=== PATIENT | male | born 1945 | race Caucasian/White ===

== ENCOUNTER 2017-03-20 10:06 | Emergency (ER) | payer MEDICARE, OTHER ==
[~2017-03-20] VITALS: Ht 177.8 cm; Wt 100.0 kg
[~2017-03-20 10:06] MED LIST: ASAEC PO; DIGO125T PO; GLU500 PO; LIP20 PO; METO25T PO; PRED5DRO6 BOTH_EYES; SITA100T PO; THI100 PO; ZES5 PO; [UNRECOGNIZED DRUG - CODE] PO; [UNRECOGNIZED DRUG - OTHER] OD
[2017-03-20 10:20] VITALS: BP 151/95; PULSE 122; RESP 18; O2SAT 95
--- NOTE | 2017-03-20 10:41 | ED.REPORT ---
HPI-Chest Pain 40 and Over Date of Service Mar 20, 2017 ED Provider: Camden Oglesby MD The patient is a 71 year old male with history of diabetes mellitus, hypertension, hyperlipidemia, asbestosis, atrial fibrillation, COPD, ACS, hx of GI bleed, and non-compliance with medications, who was brought to the emergency department by EMS. The patient went in to the [facility] this morning for his annual checkup when he reported intermittent chest pain over the last few months. At the facility he had an EKG that showed an "acute SD." When medics arrived their EKG showed sinus tachycardia. The patient reports he has been having intermittent episodes of chest pain over the last few months. The pain is located diffusely to his chest. He describes the pain as "tight." The pain usually lasts for about 10 minutes at a time and occurs about every other day. He does notice some shortness of breath during the episodes. He feels like he can't get a deep breath. The patient drinks 8-12 beers per day. His last drink was 2 days ago. He stopped drinking because he knew he had a doctors appointment coming up. The patient is not currently taking any of his prescribed medications. He states he ran out and just never filled them. Nursing Notes Stated Complaint: CHEST PAIN Chief Complaint: Dysrhythmia/Cardiac Nursing Notes Reviewed: Yes Allergies: Coded Allergies: No Known Allergies (Verified , 03/22/08) Scheduled Aspirin (Aspirin) 81 Mg Tablet 81 MG PO DAILY Aspirin-Expunged Drug, Do Not Renew! (Ecotrin-Expunged Drug, Do Not Renew!) 325 Mg Tabec 325 MG PO DAILY Atorvastatin-Expunged Drug, Do Not Renew! (Atorvastatin-Expunged Drug, Do Not Renew!) 20 Mg Tablet 20 MG PO HS Digoxin-Expunged Drug, Do Not Renew! (Digoxin-Expunged Drug, Do Not Renew!) 125 Mcg Tablet 0.125 MG PO NOON Glimepiride-Expunged Drug, Do Not Renew! (Glimepiride-Expunged Drug, Do Not Renew!) 2 Mg Tablet 2 MG PO DAILYAC Lisinopril-Expunged Drug, Do Not Renew! (Lisinopril-Expunged Drug, Do Not Renew! ) 5 Mg Tablet 5 MG PO DAILY Metformin-Expunged Drug, Do Not Renew! (Metformin-Expunged Drug, Do Not Renew!) 500 Mg Tablet 500 MG PO BIDWM Metoprolol Tart-Expunged Drug, Do Not Renew! (Metoprolol Tart-Expunged Drug, Do Not Renew!) 25 Mg Tablet 25 MG PO Q12 Metoprolol Tartrate (Metoprolol Tartrate) 25 Mg Tablet 12.5 MG PO BID Sitagliptin Phosphate (Januvia) 100 Mg Tablet 100 MG PO DAILY Thiamine-Expunged Drug, Do Not Renew! (Vitamin B1-Expunged Drug, Do Not Renew!) 100 Mg Tab 100 MG PO DAILY Miscellaneous Medications Ketorolac Tromethamine (Acular) 75 Drop/5 Ml Oph.soln 0.5 DROP OD Prednisolone Acetate (Prednisolone Acetate) 5 Ml Drops.susp 1 DRP BOTH_EYES General Time Seen by MD: 10:32 Chief Complaint Chest pain Hx Obtained From: Patient, Spouse, EMS Arrived By: Ambulance Sudden in Onset?: No Onset Occurred: More than a week ago... Symptom Duration: Intermittent Location: : Chest left: Chest right Quality: Painful Severity: Current: Mild Severity: Maximum: Severe Recent Healthcare: No recent hospitalization, Recent doctor visit Similar Sx Previous: Yes Past Medical History Past Medical History Cataracts ACS Hx of non-compliance with medication Atrial fibrillation Depression COPD Alcohol abuse Hx of GI bleed Asbestosis Reports: Cancer, Diabetes mellitus, Hyperlipidemia, Hypertension Past Surgical History eye surgery Reports: Appendectomy Smoking History Former Smoker Social History Alcohol Use: 1-3 per day Drug Use: Denies drug use Ambulatory Status Independent Review of Systems Respiratory: Reports: Shortness of breath Cardiovascular: Reports: Chest pain Complete sys rev & neg: except as marked. Physical Exam Initial Vital Signs Vital Signs (First) Date Time Temp Pulse Resp B/P Pulse Ox O2 Delivery O2 Flow Rate FiO2 03/20/17 10:20 36.8 122 18 151/95 95 Room Air Initial VS: Reviewed Head / Eyes: Atraumatic ENT: Mucous membranes moist, Conjunctiva normal, No scleral icterus Neck: Supple, Non-tender, Full range of motion Lymphatic: No lymphadenopathy Extremities: Vascular intact, Neuro intact, No swelling, No tenderness Skin: Warm, Dry, No cyanosis Psychiatric: Mood/affect normal, Behavior normal, Normal thought content General/Constitutional: Awake, Alert, No acute distress, Well appearing Respiratory / Chest: Atraumatic, Breath sounds NL, Breath sounds = bilat, No respiratory distress, No rales, No rhonchi, No wheezing, No stridor, No chest tenderness Cardiovascular: Regular rhythm, Heart sounds NL, No gallop, No murmurs, No rubs , Cap refill not delayed Heart Rate / Rhythm: Positive: Tachycardia Abdomen: Atraumatic, Soft, Non-tender, McBurney's non-tender, No guarding, No rebound, BS normoactive, No distention, No hernia, No palpable mass Neurologic: Oriented X3, Speech NL, No motor deficits, No sensory deficits, CN II - XII intact No tremors. Interpretation & Diagnostics Lab Results Interpretation Result Diagram: 03/20/17 1030 03/20/17 1030 Test 03/20/17 10:30 White Blood Count 7.2th/mm3 (3.8-10.1) Red Blood Count 5.55mil/mm3 (4.40-5.80) Hemoglobin 17.1g/dL (13.8-17.2) Hematocrit 49.3% (41.0-50.0) Mean Corpuscular Volume 88.8fL (81-100) Mean Corpuscular Hemoglobin 30.8pg (27.0-35.0) Mean Corpuscular Hemoglobin Concent 34.7% (32.0-37.0) Red Cell Distribution Width 12.8% (12.3-15.4) Platelet Count 206bil/L (150-400) Neutrophils (%) (Auto) 52.6% (40-74) Lymphocytes (%) (Auto) 33.2% (14-46) Monocytes (%) (Auto) 11.7% (4-12) Eosinophils (%) (Auto) 1.7% (0-5) Basophils (%) (Auto) 0.7% (0-3) Prothrombin Time 11.1sec (8.1-12.5) Prothromb Time International Ratio 1.04ratio D-Dimer 0.63mg/L FEU (<0.50) Sodium Level 137mEq/L (134-144) Potassium Level 3.9mEq/L (3.5-5.2) Chloride Level 93mEq/L (97-108) Carbon Dioxide Level 24mmol/L (18-29) Blood Urea Nitrogen 16mg/dL (8-27) Creatinine 0.82mg/dL (0.76-1.27) Estimat Glomerular Filtration Rate 98mL/min (>59) Glucose Level 291mg/dL (60-99) Calcium Level 9.9mg/dL (8.5-10.1) Magnesium Level 1.8mg/dL (1.6-2.6) Total Bilirubin 0.8mg/dL (0.0-1.2) Aspartate Amino Transf (AST/SGOT) 36U/L (0-50) Alanine Aminotransferase (ALT/SGPT) 43U/L (0-44) Alkaline Phosphatase 106U/L (25-160) Troponin T 0.010ug/L (0.0-0.011) Pro-B-Type Natriuretic Peptide 360.2pg/mL (0-376) Total Protein 8.4g/dL (6.4-8.4) Albumin 4.3g/dL (3.4-5.0) ECG Interpretation ECG Interpretation: Sinus tachycardia with a rate of [address] T changes Time: 10:30 Interpreted by: ED physician X-Ray Chest Interpretation Chest Xray Interpretation: IMPRESSION: Stable chest. No acute cardiopulmonary process is evident. Dictated by: Jayson Curran M.D. on 03/20/2017 at 10:11 Interpretation / Wet Read by: Interpret - Radiologist CT Chest Interpretation IMPRESSION: 1. No acute pulmonary embolus. 2. Extensive pleural thickening and calcification suggesting prior asbestosis Asbestos exposure. 3. Cardiomegaly and coronary artery calcifications. Dictated by: Alexa Duenas M.D. on 03/20/2017 at 12:48 Study type: CT pulm angiogram Interpretation / Wet Read by: Interpret - Radiologist Re-Eval/Medical Decision Med Decision/Clinical Course 71-year-old male history of COPD, atrial fibrillation not on any medications by patient choice presenting sent in by primary doctor complaining of chest pain for several months. He is vague about the chest pain. He was seen by his primary doctor today and they were worried that his EKG showed acute SD therefore sent him in for evaluation. The paramedics and I reviewed the EKG and there was no evidence of acute SD. He did arrive in atrial flutter with RVR. He was given 500 mL's of IV fluids and 10 mg of IV diltiazem and his heart rate stabilized. He went up to HR 150s for several seconds which resolved. He had no chest pain while I was here. His troponins were negative. His d-dimer was mildly elevated but CT Angio chest showed no PE. I discussed with patient and he requested to go home. He did not want to be admitted to the hospital. He did not want to be on anticoagulants. He was agreeable to starting aspirin. He will placed on a low-dose beta mercedes and aspirin daily with plans to follow up with his primary doctor tomorrow for reevaluation. Source of Hx: Old records, EMS, Private physician Time of Eval: 13:36 Re-Evaluation/Progress Note: Rechecked the patient. Discussed plan for discharge. He is willing to take medications. All questions were addressed. Counseled Regarding: Diagnosis, Lab results, Need for follow-up, When/why to return to ED Discharge & Departure Primary Impression: Atrial flutter with rapid ventricular response Additional Impression: Chest pain Chest pain type: unspecified Qualified Code: R07.9 - Chest pain, unspecified Disposition: Home Discharge Condition All VS Reviewed: Yes Condition: Stable Patient Instructions: Atrial Flutter (ED), Chest Pain (ED) Additional Instructions: Thank you for entrusting us with your care today. Your workup today is reassuring. There is no evidence of a heart attack, pneumonia, or blood clot at this time. You should start taking 81 mg aspiring daily. I have also prescribed you a beta-mercedes. It is important to take this as prescribed. Followup with your regular physician for further evaluation. Return to the emergency department for increased pain, shortness of breath, lightheadedness, extremity swelling, or any other new or concerning symptoms. Referrals: ISRAEL MCCAULEY MD (PCP) Crit Care Except Billable Proc Time Spent: 30-74 minutes Services Performed: Patient management by me, Time spent at bedside, Reviewing test results, Reviewing imaging, Discussing patient care, Documentation in record Scribe Attestation Portions of this note were transcribed by Janna Denton. I, Dr. Oglesby personally performed the history, physical exam and medical decision-making; I reviewed and confirmed the accuracy of the information in the transcribed note. Signed by: Javi Tomlinson, 03/20/2017 at 1400. copies to: ISRAEL MCCAULEY MD, Ben M MD Mar 20, 2017 10:41 Bertin,Janna Moreira Mar 20, 2017 10:48
[2017-03-20 10:52] LABS: BASOPHILS % (AUTO) 0.7 % (0-3); EOSINOPHILS % (AUTO) 1.7 % (0-5); MONOCYTES % (AUTO) 11.7 % (4-12); Mean Corpuscular Hemoglobin 30.8 pg (27.0-35.0); Mean Corpuscular Volume 88.8 fL (81-100); NEUTROPHILS % (AUTO) 52.6 % (40-74); Platelet Count 206 bil/L (150-400)
[2017-03-20] MEDS ORDERED: 0.9% Sodium Chloride 500 ML IV ONE (10:52)
[2017-03-20] MEDS ORDERED: Diltiazem 5 mg/mL 5 mL Inj IVPUSH ONE (10:55)
[2017-03-20 11:11] LABS: D-Dimer 0.63 mg/L FEU (<0.50); INR 1.04 ratio
[2017-03-20 11:17] LABS: TROPONIN T 0.01 ug/L (0.0-0.011)
--- NOTE | 2017-03-20 11:21 | DRSVH ---
PROCEDURE: X-RAY CHEST ONE VIEW, PORTABLE ([id number]) INDICATIONS: Chest pain. Tachycardia. TECHNIQUE: One view of the chest was acquired. COMPARISON: [facility], CR, CHEST 1VW (PORTABLE), 12/07/2014, 11:21. [facility], CT, CHEST WITH CONTRAST, 05/17/2013, 20:19. FINDINGS: Surgical changes and devices: None. Lungs and pleura: Extensive calcified pleural plaques are identified throughout the lungs bilaterally (right more than left). No lobar consolidation, effusion, or pneumothorax is appreciated. Mediastinum: Mediastinal contours appear normal. Heart size is normal. There is aortic atheroscler osis. Bones and chest wall: No suspicious bony lesions. Overlying soft tissues appear unremarkable. IMPRESSION: Stable chest. No acute cardiopulmonary process is evident. Dictated by: Jayson Curran M.D. on 03/20/2017 at 10:11 Approved by: Jayson Curran M.D. on 03/20/2017 at 10:12
[2017-03-20 11:31] VITALS: BP 111/63; PULSE 80; RESP 17; O2SAT 95
[2017-03-20 11:39] LABS: Magnesium 1.8 mg/dL (1.6-2.6)
--- NOTE | 2017-03-20 13:12 | DRSVH ---
PROCEDURE: CT ANGIO CHEST PULMONARY EMBOLISM ([id number]) INDICATIONS: chest pain elevated ddimer TECHNIQUE: After the administration of intravenous contrast, 2 mm thick sections acquired from the pulmonary api don to the posterior costophrenic angles. 3-dimensional maximum intensity projection (MIP) coronal a nd sagittal reformats were then acquired through the thorax. For radiation dose reduction, the follo wing was used: automated exposure control, adjustment of mA and/or kV according to patient size. COMPARISON: Located [facility], CT, CHEST WITH CONTRAST, 05/17/2013, 20:19. FINDINGS: Image quality: Excellent. Pulmonary arteries: Pulmonary arteries are normal in size, and demonstrate no intraluminal filling d efects to suggest central pulmonary embolism. Lungs and pleura: There are extensive calcified plaques and pleural thickening throughout both lungs. No acute air space opacities. No pneumothorax. No pleural effusion. Mediastinum: Heart size is enlarged, without pericardial effusion. There are calcified coronary howie sharda. There are multiple enlarged mediastinal lymph nodes unchanged when compared with the study date d 05/17/13. Thoracic aorta is normal in caliber and enhancement. Esophagus is normal in caliber, with out hiatal hernia. Bones and chest wall: No suspicious bony lesions. Ribs and thoracic spine appear intact throughout. Thyroid gland is unremarkable. No axillary or supraclavicular adenopathy. Abdomen: Visualized upper abdominal solid organs appear normal in the early arterial phase of enhanc ement. IMPRESSION: 1. No acute pulmonary embolus. 2. Extensive pleural thickening and calcification suggesting prior asbestosis Asbestos exposure. 3. Cardiomegaly and coronary artery calcifications. Dictated by: Alexa Duenas M.D. on 03/20/2017 at 12:48 Approved by: Alexa Duenas M.D. on 03/20/2017 at 13:10
[2017-03-20 13:27] VITALS: BP 135/95; PULSE 88; RESP 16; O2SAT 97
[2017-03-20] MEDS ORDERED: ASPI-973 PO (13:38)
[2017-03-20] MEDS ORDERED: METO25TA6 PO (13:38)
[2017-03-20 14:09] VITALS: BP 142/69; PULSE 82; RESP 16; O2SAT 98
== END 2017-03-20 14:12 | disposition home or self-care (01) ==
LOC: SED 10:06 → EDBD 10:06 → SED 14:12
DX: I48.92 Unspecified atrial flutter (principal); R07.9 Chest pain, unspecified; E11.9 Type 2 diabetes mellitus without complications; I10 Essential (primary) hypertension; E78.5 Hyperlipidemia, unspecified; Z79.82 Long term (current) use of aspirin; Z79.84 Long term (current) use of oral hypoglycemic drugs; Z87.891 Personal history of nicotine dependence
CPT/HCPCS: 36415; 71010; 71275; 80053; 83735; 83880; 84484; 85025; 85378; 85610; 93005; 96361; 96374; 99291; J7030; Q9967

== ENCOUNTER 2017-04-05 16:21 | Emergency (ER) | payer MEDICARE, OTHER ==
[~2017-04-05 16:21] MED LIST changes: +ASPI-973 PO; +METO25TA6 PO
[2017-04-05 16:22] VITALS: BP 116/77; PULSE 78; RESP 15; O2SAT 98
--- NOTE | 2017-04-05 16:35 | ED.REPORT ---
HPI-General Illness Date of Service Apr 05, 2017 ED Provider: Dr. Mauro Bhandari MD A 71 year old male with history of alcohol abuse, diabetes mellitus, hypertension, hyperlipidemia, asbestosis, atrial fibrillation, COPD, ACS, GI bleed, and non-compliance with medications presents to the ED via EMS following a GLF that occurred just prior to arrival. Patient was reportedly drinking a beer this morning, tripped and fell backward hitting the occipital region of his scalp. He is currently endorsing 3/0 headache that has been constant since onset. He denies any other injuries at this time. Patient denies any new onset headache, neck pain, visual disturbances, abdominal pain, nausea, vomiting, diarrhea, constipation, hematuria, hematochezia, SOB, chest pain, weakness or unilateral numbness/tingling. Patient was recently seen in the ED on 03/20 for atrial fluter with RVR and was discharged in stable condition with a prescription for a beta-mercedes and 81 mg of Aspirin daily. Last tetanus is unknown. Nursing Notes Stated Complaint: GLF Chief Complaint: Multiple Trauma/Fall Nursing Notes Reviewed: Yes Allergies: Coded Allergies: No Known Allergies (Verified , 04/05/17) Scheduled Aspirin (Aspirin) 81 Mg Tablet 81 MG PO DAILY Aspirin-Expunged Drug, Do Not Renew! (Ecotrin-Expunged Drug, Do Not Renew!) 325 Mg Tabec 325 MG PO DAILY Atorvastatin-Expunged Drug, Do Not Renew! (Atorvastatin-Expunged Drug, Do Not Renew!) 20 Mg Tablet 20 MG PO HS Digoxin-Expunged Drug, Do Not Renew! (Digoxin-Expunged Drug, Do Not Renew!) 125 Mcg Tablet 0.125 MG PO NOON Glimepiride-Expunged Drug, Do Not Renew! (Glimepiride-Expunged Drug, Do Not Renew!) 2 Mg Tablet 2 MG PO DAILYAC Lisinopril-Expunged Drug, Do Not Renew! (Lisinopril-Expunged Drug, Do Not Renew! ) 5 Mg Tablet 5 MG PO DAILY Metformin-Expunged Drug, Do Not Renew! (Metformin-Expunged Drug, Do Not Renew!) 500 Mg Tablet 500 MG PO BIDWM Metoprolol Tart-Expunged Drug, Do Not Renew! (Metoprolol Tart-Expunged Drug, Do Not Renew!) 25 Mg Tablet 25 MG PO Q12 Metoprolol Tartrate (Metoprolol Tartrate) 25 Mg Tablet 12.5 MG PO BID Sitagliptin Phosphate (Januvia) 100 Mg Tablet 100 MG PO DAILY Thiamine-Expunged Drug, Do Not Renew! (Vitamin B1-Expunged Drug, Do Not Renew!) 100 Mg Tab 100 MG PO DAILY Miscellaneous Medications Ketorolac Tromethamine (Acular) 75 Drop/5 Ml Oph.soln 0.5 DROP OD Prednisolone Acetate (Prednisolone Acetate) 5 Ml Drops.susp 1 DRP BOTH_EYES General Time Seen by MD: 16:35 Chief Complaint Other (GLF) Hx Obtained From: Patient Arrived By: Ambulance Sudden in Onset?: Yes Onset Occurred: Just prior to arrival Symptom Duration: Since onset Caused by: Accidental Location: : Head Quality: Aching Radiation: : Does not radiate Severity: Current: Pain level 3 out of 10 Severity: Maximum: Pain level 3 out of 10 Associated with: Reports: Headache, Denies: Abdominal pain, Chest pain, Fever, Nausea, Numb extremities, Shortness of breath, Vomiting, Weakness Pertinent Negative: Pt denies other symptoms Recent Healthcare: No recent hospitalization, Recent doctor visit Past Medical History Past Medical History Hypertension Diabetes mellitus Hyperlipidemia Cataracts ACS Hx of non-compliance with medication Atrial fibrillation Depression COPD Alcohol abuse Hx of GI bleed Asbestosis Reports: Cancer Past Surgical History Eye surgery Reports: Appendectomy Smoking History Former Smoker Social History Alcohol Use: 1-3 per day Drug Use: Denies drug use Other Social History: Local resident Ambulatory Status Independent Review of Systems Full Review of Systems Constitutional: Denies: Chills, Fever Respiratory: Denies: Shortness of breath Cardiovascular: Denies: Chest pain GI: Denies: Abdominal pain, Constipation, Diarrhea, Hematochezia, Nausea, Vomiting Male: Denies Hematuria Musculoskeletal: Denies: Neck pain Neurologic: Reports: Headache, Denies: Numbness, Vision change, Weakness Complete sys rev & neg: except as marked. Physical Exam Nursing note and vitals reviewed. HEENT: Abrasion to parietal scalp on right with some dried blood. No active bleeding. No significant laceration present. Right eye normal with pupils 4-3 and briskly reactive Left eye normal with pupils 4-3 and briskly reactive Left tympanic membrane normal, right tympanic membrane normal Midface stable, no malocclusion No nasal septal hematoma Neck: nontender, trachea midline. Lungs: Clear to auscultation bilaterally, normal work of breathing Chest: Stable without any chest wall tenderness, no crepitus. Cardiac: Regular rate and rhythm Abdomen: Normal, non-tender, non-distended. Back: No bruising, tenderness, or step-offs Pelvis: Stable Skin: Warm and well perfused Extremities: Left upper extremity grossly normal, no deformity. Right upper extremity grossly normal, no deformity. Right lower extremity grossly normal, no deformity. Left lower extremity grossly normal, no deformity. Pulses: Palpable to bilateral upper and lower extremities Neuro: Motor and sensory exams grossly within normal limits; patient localizes to pain. Vital Signs Vital Signs Date Time Temp Pulse Resp B/P Pulse Ox O2 Delivery O2 Flow Rate FiO2 04/05/17 22:45 84 12 121/80 97 Room Air 04/05/17 16:22 36.7 78 15 116/77 98 Room Air Interpretation & Diagnostics Lab Results Interpretation Result Diagram: 04/05/17 1630 04/05/17 1630 Test 04/05/17 16:30 White Blood Count 6.3th/mm3 (3.8-10.1) Red Blood Count 4.75mil/mm3 (4.40-5.80) Hemoglobin 14.8g/dL (13.8-17.2) Hematocrit 42.1% (41.0-50.0) Mean Corpuscular Volume 88.6fL (81-100) Mean Corpuscular Hemoglobin 31.2pg (27.0-35.0) Mean Corpuscular Hemoglobin Concent 35.2% (32.0-37.0) Red Cell Distribution Width 12.4% (12.3-15.4) Platelet Count 175bil/L (150-400) Neutrophils (%) (Auto) 38.0% (40-74) Lymphocytes (%) (Auto) 47.5% (14-46) Monocytes (%) (Auto) 10.9% (4-12) Eosinophils (%) (Auto) 2.4% (0-5) Basophils (%) (Auto) 1.0% (0-3) Sodium Level 131mEq/L (134-144) Potassium Level 3.9mEq/L (3.5-5.2) Chloride Level 93mEq/L (97-108) Carbon Dioxide Level 21mmol/L (18-29) Blood Urea Nitrogen 9mg/dL (8-27) Creatinine 0.73mg/dL (0.76-1.27) Estimat Glomerular Filtration Rate 112mL/min (>59) Glucose Level 318mg/dL (60-99) Calcium Level 8.9mg/dL (8.5-10.1) Magnesium Level 1.6mg/dL (1.6-2.6) Total Bilirubin 0.4mg/dL (0.0-1.2) Aspartate Amino Transf (AST/SGOT) 46U/L (0-50) Alanine Aminotransferase (ALT/SGPT) 36U/L (0-44) Alkaline Phosphatase 75U/L (25-160) Total Protein 7.0g/dL (6.4-8.4) Albumin 3.5g/dL (3.4-5.0) Hold Vu Top Tube Received (Received) Alcohols 183mg/dL (0-10) CT Head Interpretation IMPRESSION: No acute intracranial disease process. Dictated by: Allyn Jolley MD, PhD on 04/05/2017 at 17:22 Study: Head CT no contrast Interpretation / Wet Read by: Interpret - Radiologist CT C-Spine Interpretation IMPRESSION: No fracture. No acute osseous lesion. If symptoms and/or clinical suspicion for pathology persists, evaluation with MRI may be helpful for further assessment. Dictated by: Allyn Jolley MD, PhD on 04/05/2017 at 17:12 Study type: CT no contrast Interpretation / Wet Read by: Interpret - Radiologist Re-Eval/Medical Decision Med Decision/Clinical Course 71-year-old male presenting to the ED for evaluation after a fall earlier today. Primary survey did not reveal any immediate life threats. Secondary survey notable for small abrasion to scalp, not actively bleeding. CT head and C -spine negative for acute injury. No other findings on exam. Laboratory studies reviewed, notable for a blood alcohol of 183. Observed in the ED for several hours and allowed to sober. No other complaints. Given Tdap, IVF. After discussion with the patient, decision made to discharge the patient with very careful return precautions, follow up with their PCP in the next 1 to 2 days. Patient agreeable to the plan as stated, no further questions. Time of Eval: 19:10 Patient Status: Condition improved Re-Evaluation/Progress Note: Pt is informed of his reassuring results and the plan to discharge after sobering up. All questions about the treatment plan are addressed. Time of Eval: 22:19 Patient Status: Condition improved Re-Evaluation/Progress Note: Pt passes road test. He is agreeable to discharge at this time. Counseled Regarding: Diagnosis, Lab results, Need for follow-up, When/why to return to ED Discharge & Departure Primary Impression: Fall from ground level Additional Impressions: Head trauma Encounter type: initial encounter Qualified Code: S09.90XA - Unspecified injury of head, initial encounter Alcohol intoxication Complication of substance-induced condition: uncomplicated Qualified Code: F10.120 - Alcohol abuse with intoxication, uncomplicated Disposition: Home Discharge Condition All VS Reviewed: Yes Condition: Improved Patient Instructions: Alcohol Intoxication (ED), Fall Prevention for Older Adults (ED), Head Injury (ED) Additional Instructions: Thank you for trusting us with your care this evening. Your emergency department results including examination, lab work, EKG, chest X- ray and CT are reassuring that there is no emergent cause for concern at this time. I recommend that you abstain from alcohol use. Please schedule a follow up appointment with your primary care physician tomorrow for a recheck. Please return to the emergency department for any new or worsening symptoms including any headache, vision changes, nausea, vomiting, worsening chest pain, shortness of breath, high fevers, shaking chills, weakness or one sided numbness /tingling. Referrals: [facility] ([facility]) Scribe Attestation Portions of this note were transcribed by Naina Latham. I, Dr. Bhandari personally performed the history, physical exam and medical decision-making; I reviewed and confirmed the accuracy of the information in the transcribed note. Signed by: Javi Laird, 04/05/17 0020. copies to: [facility] Mauro Bhandari MD Apr 05, 2017 16:35 NAINA LATHAM Apr 05, 2017 17:24 Mauro Bhandari MD Apr 05, 2017 16:35 NAINA LATHAM Apr 05, 2017 17:24
[2017-04-05 16:47] LABS: EOSINOPHILS % (AUTO) 2.4 % (0-5); MONOCYTES % (AUTO) 10.9 % (4-12); Mean Corpuscular Hemoglobin 31.2 pg (27.0-35.0); Mean Corpuscular Volume 88.6 fL (81-100); Platelet Count 175 bil/L (150-400)
[2017-04-05 17:07] LABS: Magnesium 1.6 mg/dL (1.6-2.6)
--- NOTE | 2017-04-05 17:24 | DRSVH ---
PROCEDURE: CT CERVICAL SPINE WITHOUT CONTRAST ([id number]) INDICATIONS: fell hit head some neck tenderness. TECHNIQUE: Noncontrast 3 mm thick sections acquired from the skull base to the T4 level. Sagittal and coronal r eformats were then constructed. For radiation dose reduction, the following was used: automated exp osure control, adjustment of mA and/or kV according to patient size. COMPARISON: None. FINDINGS: Image quality: Excellent. Bones: No fractures or dislocations. Visualized superior ribs are intact. Multilevel degenerative d isc disease and facet arthropathy are noted. Soft tissues: Prevertebral soft tissues are normal in thickness. No paravertebral hematomas. No ap ical pneumothoraces. Calcified pleural plaques noted in the lung apices bilaterally. Atherosclerotic calcifications noted in the aorta, great vessels and the carotid arteries. IMPRESSION: No fracture. No acute osseous lesion. If symptoms and/or clinical suspicion for patholog y persists, evaluation with MRI may be helpful for further assessment. Dictated by: Allyn Jolley MD, PhD on 04/05/2017 at 17:12 Approved by: Allyn Jolley MD, PhD on 04/05/2017 at 17:22
--- NOTE | 2017-04-05 17:26 | DRSVH ---
PROCEDURE: CT BRAIN WITHOUT CONTRAST ([id number]) INDICATIONS: fell back of head TECHNIQUE: Noncontrast 4.5 mm thick angled axial sections acquired from the foramen magnum to the vertex, with c oronal reformats. COMPARISON: [facility], CT, BRAIN W/O CONTRAST, 03/22/2008, 0:02. FINDINGS: Image quality: Excellent. CSF spaces: Basal cisterns are patent. No extra-axial fluid collections. The ventricles are symmet kt in size and shape. Brain: No intracranial bleeds or masses. There is cerebral volume loss for age, with resultant vent ricular and sulcal prominence. There are periventricular and deep white matter chronic small vessel ischemic changes. There is intracranial internal carotid artery and vertebral artery atherosclerosis . Skull and face: Calvarium and visualized facial bones appear intact, without suspicious lesions. Sinuses: Visualized sinuses and mastoids are clear. IMPRESSION: No acute intracranial disease process. Dictated by: Allyn Jolley MD, PhD on 04/05/2017 at 17:22 Approved by: Allyn Jolley MD, PhD on 04/05/2017 at 17:23
[2017-04-05] MEDS ORDERED: 0.9% Sodium Chloride 1,000 ML IV ONE (19:10)
[2017-04-05] MEDS ORDERED: TdaP Vaccine 0.5 mL Inj IM ONE (19:10)
[2017-04-05 22:45] VITALS: BP 121/80; PULSE 84; RESP 12; O2SAT 97
== END 2017-04-05 22:48 | disposition home or self-care (01) ==
LOC: SED 16:21 → EDUNIT# 16:21 → EDBD 16:21 → SED 22:48
DX: S00.01XA Abrasion of scalp, initial encounter (principal); W01.10XA Fall on same level from slipping, tripping and stumbling with subsequent striking against unspecified object, initial encounter; Y93.89 Activity, other specified; Y99.8 Other external cause status; Y92.410 Unspecified street and highway as the place of occurrence of the external cause; F10.220 Alcohol dependence with intoxication, uncomplicated; E11.9 Type 2 diabetes mellitus without complications; I10 Essential (primary) hypertension; E78.5 Hyperlipidemia, unspecified; J61 Pneumoconiosis due to asbestos and other mineral fibers; I48.91 Unspecified atrial fibrillation; J44.9 Chronic obstructive pulmonary disease, unspecified; I24.9 Acute ischemic heart disease, unspecified; F32.9 Major depressive disorder, single episode, unspecified; Y90.6 Blood alcohol level of 120-199 mg/100 ml; Z87.19 Personal history of other diseases of the digestive system; Z91.14 Patient's other noncompliance with medication regimen; Z85.9 Personal history of malignant neoplasm, unspecified; Z87.891 Personal history of nicotine dependence; Z23 Encounter for immunization; Z79.82 Long term (current) use of aspirin; Z79.84 Long term (current) use of oral hypoglycemic drugs
CPT/HCPCS: 36415; 70450; 72125; 80053; 82075; 82948; 83735; 85025; 90471; 90715; 96360; 99285; G0480; J7030